=== PATIENT | male | born 1970 | race Hispanic/Latino ===

== ENCOUNTER 2022-10-13 16:24 | Emergency (ER) | payer SELFPAY ==
[2022-10-13 16:34] VITALS: BP 118/60; PULSE 116; RESP 18; TEMP 37.5; O2SAT 97; BMI 34.4
--- NOTE | 2022-10-13 17:07 | ED_ITS ---
HPI - Nausea/Vomiting/Diarrhea <Francesca Oro PA-C - Last Filed: 10/13/22 20:23> General Chief complaint: Nausea/Vomiting/Diarrhea Stated complaint: had a energy drink, not feeling well Time Seen by Provider: 10/13/22 16:38 Source: patient Mode of arrival: Wheelchair History of Present Illness HPI Narrative: Patient is a 52-year-old male reporting to the ED for evaluation of increased heart rate, nausea and shortness of breath starting earlier today. He states that his symptoms started after he drank a 12 oz beverage which he thought was an energy drink but may have had some alcohol in it. He can not recall the name of it and was given it by a friend. He had a co-worker bring him by for evaluation. He states that his only chronic condition is asthma. He is uncertain of his diabetic status. States that his mouth feels quite dry He denies any chest pain but does report some dizziness. He denies vomiting. He reports feeling quite somnolent and does not want to sit up. He denies any rece nt cough, fever or body aches. He denies any chest pain. He denies any wheezing or changes in urination or diarrhea or constipation. His heart rate feels quite elevated and he does not feel right. His reports that he woke up around 630 this morning but his sleepiness now does not make sense. Related Data Home Medications Medication Instructions Recorded Confirmed ALBUTEROL (PROVENTIL INHALER) 0.09 mg IH PRN ##0 12/02/10 Fluticasone Propionate (FLONASE) 1 spray intranasal QDAY ##0 12/02/10 [ALLERGY PILL] ##0 12/02/10 Allergies Allergy/AdvReac Type Severity Reaction Status Date / Time shellfish derived AdvReac Verified 10/13/22 16:38 Review of Systems <Francesca Oro PA-C - Last Filed: 10/13/22 20:23> Review of Systems Narrative: Per HPI Patient History <Francesca Oro PA-C - Last Filed: 10/13/22 20:23> Substance Use Type: does not use Exam <Francesca Oro PA-C - Last Filed: 10/13/22 20:23> Initial Vital Signs Initial Vital Signs: Vital Signs Temperature 99.5 F 10/13/22 16:34 Pulse Rate 116 H 10/13/22 16:34 Respiratory Rate 18 10/13/22 16:34 Blood Pressure 118/60 10/13/22 16:34 Pulse Oximetry 97 10/13/22 16:34 Oxygen Delivery Method Room Air 10/13/22 16:34 GENERAL: 52 year old patient appears stated age. Well-developed patient, appears sleepy and resistant to sitting up. HEAD: Atraumatic. Normocephalic. EYES: Pupils equal round and reactive to light and accommodation. Extraocular motions intact. No scleral icterus. No injection or drainage. CARDIOVASCULAR: Regular rate and rhythm without murmurs, gallops, or rubs. RESPIRATORY: Clear to auscultation. Breath sounds equal bilaterally. No wheezes, rales, or rhonchi. No increased work of breathing GASTROINTESTINAL: Abdomen soft, non-tender, nondistended. BACK: Nontender without deformity or crepitance. No flank tenderness. NEURO: AOx3. SKIN: No rash or erythema of visible areas <Laura Thornton DO - Last Filed: 10/14/22 01:42> Initial Vital Signs Initial Vital Signs: Vital Signs Temperature 99.5 F 10/13/22 16:34 Pulse Rate 116 H 10/13/22 16:34 Respiratory Rate 18 10/13/22 16:34 Blood Pressure 118/60 10/13/22 16:34 Pulse Oximetry 97 10/13/22 16:34 Oxygen Delivery Method Room Air 10/13/22 16:34 Course <Francesca Oro PA-C - Last Filed: 10/13/22 20:23> Orders Ordered: ED Orders 10/13/22 17:04 EKG-12 Lead Stat 10/13/22 17:35 CBC Auto Diff [Complete Blood Count AUTO DIFF] Stat CMP [Comprehensive Metabolic Panel] Stat ETOH [Ethanol (ETOH)] Stat Lipase Stat 10/13/22 19:00 Urine Drug Screen, Rapid Stat Discontinued Medications Sodium Chloride (Normal Saline 0.9%) 1,000 mls @ 1,000 mls/hr IV BOLUS ONE Stop: 10/13/22 18:19 Last Infusion: 10/13/22 18:50 Dose: 0 mls/hr Documented By: Admin: 10/13/22 17:31 Dose: 1,000 mls/hr Documented By: ZULAY Ondansetron HCl (Ondansetron 4 Mg Odt) 4 mg SL NOW ONE Stop: 10/13/22 17:06 Last Admin: 10/13/22 17:30 Dose: Not Given Documented By: ZULAY Ondansetron HCl (Ondansetron 4 Mg/2 Ml Inj) 4 mg IV NOW ONE Stop: 10/13/22 17:27 Last Admin: 10/13/22 17:31 Dose: 4 mg Documented By: ZULAY Vital Signs Vital signs: Vital Signs - 8 hr 10/13/22 18:39 10/13/22 20:05 Pulse Rate 90 88 Respiratory Rate 16 16 Blood Pressure 117/66 115/70 Pulse Oximetry 100 99 Oxygen Delivery Method Room Air Room Air <Laura Thornton DO - Last Filed: 10/14/22 01:42> Orders Ordered: ED Orders 10/13/22 17:04 EKG-12 Lead Stat 10/13/22 17:35 CBC Auto Diff [Complete Blood Count AUTO DIFF] Stat CMP [Comprehensive Metabolic Panel] Stat ETOH [Ethanol (ETOH)] Stat Lipase Stat 10/13/22 19:00 Urine Drug Screen, Rapid Stat Discontinued Medications Sodium Chloride (Normal Saline 0.9%) 1,000 mls @ 1,000 mls/hr IV BOLUS ONE Stop: 10/13/22 18:19 Last Infusion: 10/13/22 18:50 Dose: 0 mls/hr Documented By: Admin: 10/13/22 17:31 Dose: 1,000 mls/hr Documented By: ZULAY Ondansetron HCl (Ondansetron 4 Mg Odt) 4 mg SL NOW ONE Stop: 10/13/22 17:06 Last Admin: 10/13/22 17:30 Dose: Not Given Documented By: ZULAY Ondansetron HCl (Ondansetron 4 Mg/2 Ml Inj) 4 mg IV NOW ONE Stop: 10/13/22 17:27 Last Admin: 10/13/22 17:31 Dose: 4 mg Documented By: ZULAY Vital Signs Vital signs: Vital Signs - 8 hr 10/13/22 18:39 10/13/22 20:05 Pulse Rate 90 88 Respiratory Rate 16 16 Blood Pressure 117/66 115/70 Pulse Oximetry 100 99 Oxygen Delivery Method Room Air Room Air MDM - Nausea/Vomiting/Diarrhea <Francesca Oro PA-C - Last Filed: 10/13/22 20:23> Lab Data 10/13/22 17:35 10/13/22 17:35 Labs: Lab Results 10/13/22 10/13/22 10/13/22 Range/Units 17:35 17:35 17:35 WBC 6.3 (4.5-11.0) X10^3/uL RBC 4.09 L (4.5-5.9) X10^6/uL Hgb 12.9 L (13.5-17.5) g/dL Hct 37.2 L (41-53) % MCV 91.0 (80-100) fL MCH 31.6 (26-34) PG MCHC 34.7 (30-36) % RDW 13.1 (11.6-14.8) % Plt Count 194 (150-400) X10^3/uL Neut % (Auto) 51.2 (50-75) % Lymph % (Auto) 33.9 (25-40) % [place] % (Auto) 7.8 (3-14) % Eos % (Auto) 6.1 H (2-4) % Baso % (Auto) 1.0 (0-2) % Neut # (Auto) 3200 (4025-9330) /uL Lymph # (Auto) 2100 (9622-1207) /uL [place] # (Auto) 500 (0-900) /uL Eos # (Auto) 400 (0-450) /uL Baso # (Auto) 100 (0-100) /uL Sodium 136 L (137-145) mmol/L Potassium 3.8 (3.4-5.1) mmol/L Chloride 104 (98-107) mmol/L Carbon Dioxide 26 (22-32) mmol/L BUN 14 (9-20) mg/dL Creatinine 0.84 (0.66-1.25) mg/dL Estimated GFR > 60 (>60) mL/min BUN/Creatinine Ratio 16.7 (6-22) Glucose 135 H (70-100) mg/dL Calcium 8.8 (8.4-10.2) mg/dL Total Bilirubin 0.7 (0.2-1.3) mg/dL AST 29 (17-59) IU/L ALT 41 (<50) IU/L Alkaline Phosphatase 111 (38-126) U/L Total Protein 7.3 (6.3-8.2) g/dL Albumin 4.1 (3.5-5.0) g/dL Globulin 3.2 (1.7-4.1) g/dL Albumin/Globulin Ratio 1.3 (1.0-2.8) Lipase 89 (23-300) U/L U Opiates 300ng/mL cut (Negative) Ur Oxycodone Screen (Negative) Urine Methadone Screen (Negative) Ur Barbiturates Screen (Negative) U Tricyclic Antidepress (Negative) Ur Phencyclidine Scrn (Negative) Ur Amphetamines Screen (Negative) U Methamphetamines Scrn (Negative) Ur MDMA Scrn (Ecstasy) (Negative) U Benzodiazepines Scrn (Negative) Urine Cocaine Screen (Negative) U Marijuana (THC) Screen (Negative) Ethyl Alcohol ( - 10) mg/dL 10/13/22 10/13/22 Range/Units 17:35 19:00 WBC (4.5-11.0) X10^3/uL RBC (4.5-5.9) X10^6/uL Hgb (13.5-17.5) g/dL Hct (41-53) % MCV (80-100) fL MCH (26-34) PG MCHC (30-36) % RDW (11.6-14.8) % Plt Count (150-400) X10^3/uL Neut % (Auto) (50-75) % Lymph % (Auto) (25-40) % [place] % (Auto) (3-14) % Eos % (Auto) (2-4) % Baso % (Auto) (0-2) % Neut # (Auto) (0154-4428) /uL Lymph # (Auto) (4158-2582) /uL [place] # (Auto) (0-900) /uL Eos # (Auto) (0-450) /uL Baso # (Auto) (0-100) /uL Sodium (137-145) mmol/L Potassium (3.4-5.1) mmol/L Chloride (98-107) mmol/L Carbon Dioxide (22-32) mmol/L BUN (9-20) mg/dL Creatinine (0.66-1.25) mg/dL Estimated GFR (>60) mL/min BUN/Creatinine Ratio (6-22) Glucose (70-100) mg/dL Calcium (8.4-10.2) mg/dL Total Bilirubin (0.2-1.3) mg/dL AST (17-59) IU/L ALT (<50) IU/L Alkaline Phosphatase (38-126) U/L Total Protein (6.3-8.2) g/dL Albumin (3.5-5.0) g/dL Globulin (1.7-4.1) g/dL Albumin/Globulin Ratio (1.0-2.8) Lipase (23-300) U/L U Opiates 300ng/mL cut Negative (Negative) Ur Oxycodone Screen Negative (Negative) Urine Methadone Screen Negative (Negative) Ur Barbiturates Screen Negative (Negative) U Tricyclic Antidepress Negative (Negative) Ur Phencyclidine Scrn Negative (Negative) Ur Amphetamines Screen Negative (Negative) U Methamphetamines Scrn Negative (Negative) Ur MDMA Scrn (Ecstasy) Negative (Negative) U Benzodiazepines Scrn Negative (Negative) Urine Cocaine Screen Negative (Negative) U Marijuana (THC) Screen Positive H (Negative) Ethyl Alcohol < 10 ( - 10) mg/dL Point of Care Testing Glucose POC 114 ECG Data Interpretation: normal sinus rhythm, rate 97, MO interval less than 200, no left axis deviation no T-wave elevation or abnormality noted MDM Narrative Medical decision making narrative: CC: Patient is a 52-year-old male presenting for evaluation of elevated heart rate after ingesting what he thought was an energy drink. Complicating co-morbidities: Asthma Corroborating data: Data collected from: patient, Social determinants of health that may influence the patients condition: Medical records reviewed: Differential considered: alcohol intoxication, drug overdose, asthma exacerbation, Exam documented above, pertinent findings include: Clear lung exam and no increased work of breathing, heart rate of 100 with regular rhythm, patient responds to questions but is quite sleepy Lab Test results independently reviewed as above. Pertinent findings: Point of care glucose was 114. Urine drug screen showed positive for THC, alcohol levels were negative, no abnormality noted in CMP. Hemoglobin was 12.9. Independently reviewed EKG as above Treatments: Patient received 1 L of normal saline and 4 mg of Zofran. Re-evaluations: Patient reports he is feeling somewhat better after receiving a L of fluids, Zofran and sleeping for the last several hours. He reports his shortness of breath is improved. O2 sat on room air was 98% and he demonstrated ability to stand up without assistance. Discussion: Patient tested positive for THC in his urine. He has slept for most of the time that he has been in the emergency department. He denies any previous marijuana use. It is possible that it was in the drink that he had. Advised patient that affected wear off in about 12 hours. I recommend he not drive while he is somnolent as he is at present. Discussed case with Dr. López. Since he was able to stand up without assistance, he says he is feeling better and results including EKG and lab work came back negative, recommend that he go home and monitor his symptoms if he feels he is able to go home. Stated that he was willing to go home and felt safe to do so. Discussed ER precautions for re- evaluation. He and his verbalized understanding Disposition: see below, along with detailed discharge instructions that have vikas seymour reviewed with patient as well as indications for ED re-evaluation and additional outpatient follow up <Laura Thornton, - Last Filed: 10/14/22 01:42> Lab Data Labs: Lab Results 10/13/22 10/13/22 10/13/22 Range/Units 17:35 17:35 17:35 WBC 6.3 (4.5-11.0) X10^3/uL RBC 4.09 L (4.5-5.9) X10^6/uL Hgb 12.9 L (13.5-17.5) g/dL Hct 37.2 L (41-53) % MCV 91.0 (80-100) fL MCH 31.6 (26-34) PG MCHC 34.7 (30-36) % RDW 13.1 (11.6-14.8) % Plt Count 194 (150-400) X10^3/uL Neut % (Auto) 51.2 (50-75) % Lymph % (Auto) 33.9 (25-40) % [place] % (Auto) 7.8 (3-14) % Eos % (Auto) 6.1 H (2-4) % Baso % (Auto) 1.0 (0-2) % Neut # (Auto) 3200 (4436-9402) /uL Lymph # (Auto) 2100 (7560-2686) /uL [place] # (Auto) 500 (0-900) /uL Eos # (Auto) 400 (0-450) /uL Baso # (Auto) 100 (0-100) /uL Sodium 136 L (137-145) mmol/L Potassium 3.8 (3.4-5.1) mmol/L Chloride 104 (98-107) mmol/L Carbon Dioxide 26 (22-32) mmol/L BUN 14 (9-20) mg/dL Creatinine 0.84 (0.66-1.25) mg/dL Estimated GFR > 60 (>60) mL/min BUN/Creatinine Ratio 16.7 (6-22) Glucose 135 H (70-100) mg/dL Calcium 8.8 (8.4-10.2) mg/dL Total Bilirubin 0.7 (0.2-1.3) mg/dL AST 29 (17-59) IU/L ALT 41 (<50) IU/L Alkaline Phosphatase 111 (38-126) U/L Total Protein 7.3 (6.3-8.2) g/dL Albumin 4.1 (3.5-5.0) g/dL Globulin 3.2 (1.7-4.1) g/dL Albumin/Globulin Ratio 1.3 (1.0-2.8) Lipase 89 (23-300) U/L U Opiates 300ng/mL cut (Negative) Ur Oxycodone Screen (Negative) Urine Methadone Screen (Negative) Ur Barbiturates Screen (Negative) U Tricyclic Antidepress (Negative) Ur Phencyclidine Scrn (Negative) Ur Amphetamines Screen (Negative) U Methamphetamines Scrn (Negative) Ur MDMA Scrn (Ecstasy) (Negative) U Benzodiazepines Scrn (Negative) Urine Cocaine Screen (Negative) U Marijuana (THC) Screen (Negative) Ethyl Alcohol ( - 10) mg/dL 10/13/22 10/13/22 Range/Units 17:35 19:00 WBC (4.5-11.0) X10^3/uL RBC (4.5-5.9) X10^6/uL Hgb (13.5-17.5) g/dL Hct (41-53) % MCV (80-100) fL MCH (26-34) PG MCHC (30-36) % RDW (11.6-14.8) % Plt Count (150-400) X10^3/uL Neut % (Auto) (50-75) % Lymph % (Auto) (25-40) % [place] % (Auto) (3-14) % Eos % (Auto) (2-4) % Baso % (Auto) (0-2) % Neut # (Auto) (0569-5846) /uL Lymph # (Auto) (2673-4113) /uL [place] # (Auto) (0-900) /uL Eos # (Auto) (0-450) /uL Baso # (Auto) (0-100) /uL Sodium (137-145) mmol/L Potassium (3.4-5.1) mmol/L Chloride (98-107) mmol/L Carbon Dioxide (22-32) mmol/L BUN (9-20) mg/dL Creatinine (0.66-1.25) mg/dL Estimated GFR (>60) mL/min BUN/Creatinine Ratio (6-22) Glucose (70-100) mg/dL Calcium (8.4-10.2) mg/dL Total Bilirubin (0.2-1.3) mg/dL AST (17-59) IU/L ALT (<50) IU/L Alkaline Phosphatase (38-126) U/L Total Protein (6.3-8.2) g/dL Albumin (3.5-5.0) g/dL Globulin (1.7-4.1) g/dL Albumin/Globulin Ratio (1.0-2.8) Lipase (23-300) U/L U Opiates 300ng/mL cut Negative (Negative) Ur Oxycodone Screen Negative (Negative) Urine Methadone Screen Negative (Negative) Ur Barbiturates Screen Negative (Negative) U Tricyclic Antidepress Negative (Negative) Ur Phencyclidine Scrn Negative (Negative) Ur Amphetamines Screen Negative (Negative) U Methamphetamines Scrn Negative (Negative) Ur MDMA Scrn (Ecstasy) Negative (Negative) U Benzodiazepines Scrn Negative (Negative) Urine Cocaine Screen Negative (Negative) U Marijuana (THC) Screen Positive H (Negative) Ethyl Alcohol < 10 ( - 10) mg/dL Point of Care Testing Glucose POC 114 ECG Data Interpretation: normal sinus rhythm, rate 97, MO interval less than 200, no left axis deviation no T-wave elevation or abnormality noted Mank: Sinus rhythm rate of 97 MO 182 QRS of 100 QTC 452. No acute changes appreciated. MDM Narrative Medical decision making narrative: CC: Patient is a 52-year-old male presenting for evaluation of elevated heart rate after ingesting what he thought was an energy drink. Complicating co-morbidities: Asthma Corroborating data: Data collected from: patient, Social determinants of health that may influence the patients condition: Medical records reviewed: Differential considered: alcohol intoxication, drug overdose, asthma exacerbation, Exam documented above, pertinent findings include: Clear lung exam and no increased work of breathing, heart rate of 100 with regular rhythm, patient responds to questions but is quite sleepy Lab Test results independently reviewed as above. Pertinent findings: Point of care glucose was 114. Urine drug screen showed positive for THC, alcohol levels were negative, no abnormality noted in CMP. Hemoglobin was 12.9. Independently reviewed EKG as above Treatments: Patient received 1 L of normal saline and 4 mg of Zofran. Re-evaluations: Patient reports he is feeling somewhat better after receiving a L of fluids, Zofran and sleeping for the last several hours. He reports his shortness of breath is improved. O2 sat on room air was 98% and he demonstrated ability to stand up without assistance. Discussion: Patient tested positive for THC in his urine. He has slept for most of the time that he has been in the emergency department. He denies any previous marijuana use. It is possible that it was in the drink that he had. Advised patient that affected wear off in about 12 hours. I recommend he not drive while he is somnolent as he is at present. Discussed case with Dr. López. Since he was able to stand up without assistance, he says he is feeling better and results including EKG and lab work came back negative, recommend that he go home and monitor his symptoms if he feels he is able to go home. Stated that he was willing to go home and felt safe to do so. Discussed ER precautions for re- evaluation. He and his verbalized understanding Disposition: see below, along with detailed discharge instructions that have been reviewed with patient as well as indications for ED re-evaluation and additional outpatient follow up Discharge Plan Departure Patient Disposition: Home Clinical Impression: Drug ingestion Activity Restrictions/Additional Instructions: We discussed that your results showed positive for THC today. EKG and lab work came back normal. Since you are feeling better, your free to go home, but I recommend that if you develop headache, increased somnolence, shortness of breath or chest pain that you return promptly to the ER for further evaluation. Please continue to monitor symptoms closely and follow up with primary care provider for further evaluation. I recommend that you do not drive. If THC is causing your symptoms and related to ingestion earlier today, symptoms should wear off in about 12 hours. I recommend you wait to drive until returning to normal. Prescriptions: No Action ALBUTEROL (PROVENTIL INHALER) 0.09 mg IH PRN Qty: 0 Fluticasone Propionate (FLONASE) 1 spray Intranasal QDAY Qty: 0 [ALLERGY PILL] Qty: 0 Stand Alone Forms: Patient Portal/API <Laura Thornton DO - Last Filed: 10/14/22 01:42> Cosign ED Attending Barbaraature Attestation: I was immediately available in the department for consultation. Documentation has been reviewed. Case was discussed, patient's workup was reviewed patient was seen briefly and appears alert, appropriate.
[2022-10-13] MEDS: SODIUM CHLORIDE 0.9% 1,000 ML 1000 ML IV (17:31)
[2022-10-13] MEDS: ONDANSETRON 4 MG/2 ML INJ IV (17:31)
[2022-10-13 17:49] LABS: Add Manual Diff / Slide Review NO; Basophils Absolute Auto 100 /uL (0-100); Eosinophils Absolute Auto 400 /uL (0-450); Eosinophils Percent Auto 6.1 % (2-4); Hematocrit 37.2 % (41-53); Hemoglobin 12.9 g/dL (13.5-17.5); Lymphocytes Absolute Auto 2100 /uL (1100-4500); Lymphocytes Percent Auto 33.9 % (25-40); Mean Corpuscular HGB Conc 34.7 % (30-36); Mean Corpuscular Hemoglobin 31.6 PG (26-34); Monocytes Absolute Auto 500 /uL (0-900); Monocytes Percent Auto 7.8 % (3-14); Neutrophils Absolute Auto 3200 /uL (1500-7000); Neutrophils Percent Auto 51.2 % (50-75); Platelet Count 194 X10^3/uL (150-400); Red Blood Cell Count 4.09 X10^6/uL (4.5-5.9); Red Cell Distribution Width 13.1 % (11.6-14.8); White Blood Cell Count 6.3 X10^3/uL (4.5-11.0)
[2022-10-13 18:08] LABS: Ethanol (ETOH) < 10 mg/dL; Lipase 89 U/L (23-300)
[2022-10-13 18:10] LABS: Alanine Aminotransferase 41 IU/L (<50); Albumin 4.1 g/dL (3.5-5.0); Albumin Globulin Ratio 1.3 (1.0-2.8); Alkaline Phosphatase 111 U/L (38-126); Aspartate Aminotransferase 29 IU/L (17-59); BUN Creatinine Ratio 16.7 (6-22); Bilirubin Total 0.7 mg/dL (0.2-1.3); Blood Urea Nitrogen 14 mg/dL (9-20); Calcium 8.8 mg/dL (8.4-10.2); Carbon Dioxide 26 mmol/L (22-32); Chloride 104 mmol/L (98-107); Estimated Glomerular Filt Rate > 60 mL/min (>60); Globulin 3.2 g/dL (1.7-4.1); Glucose 135 mg/dL (70-100); HEMOLYSIS < 15 (0-50); Potassium 3.8 mmol/L (3.4-5.1); Sodium 136 mmol/L (137-145); Total Protein 7.3 g/dL (6.3-8.2)
[2022-10-13 18:39] VITALS: BP 117/66; PULSE 90; RESP 16; O2SAT 100
[2022-10-13 19:19] LABS: UR Morphine/Opiate cutoff 300 Negative (Negative); Ur Creatinine Normal (Normal); Ur Specific Gravity Normal (Normal); Urine Amphetamines Negative (Negative); Urine Barbiturates Negative (Negative); Urine Benzodiazepines Negative (Negative); Urine Cocaine Negative (Negative); Urine MDMA Negative (Negative); Urine Methadone Negative (Negative); Urine Methamphetamines Negative (Negative); Urine Oxycodone Negative (Negative); Urine Phencyclidine Negative (Negative); Urine Tetrahydrocannabinol Positive (Negative); Urine Tricyclic Antidepressant Negative (Negative); Urine pH Normal (Normal)
[2022-10-13 20:05] VITALS: BP 115/70; PULSE 88; RESP 16; O2SAT 99
== END 2022-10-13 20:05 | disposition home or self-care (01) ==
PROVIDERS: Emergency Provider Physician Assistant
DX: T40.711A Poisoning by cannabis, accidental (unintentional), initial encounter (principal); R00.0 Tachycardia, unspecified
CPT/HCPCS: 36415; 80053; 80305; 80320; 82962; 83690; 85025; 93005; 93010; 96374; 99284; J2405